=== PATIENT | female | born 1955 | race Caucasian/White ===

== ENCOUNTER 2020-12-07 15:36 | Outpatient (RCR) | payer BC | END 2020-12-10 | disposition home or self-care (01) | DX: M53.3 Sacrococcygeal disorders, not elsewhere classified (principal) ==

== ENCOUNTER 2021-01-18 09:15 | Outpatient (RCR) | payer BC | END 2021-03-18 | disposition home or self-care (01) | DX: M53.3 Sacrococcygeal disorders, not elsewhere classified (principal) ==

== ENCOUNTER 2021-08-21 14:27 | Outpatient (RCR) | payer MEDICARE, OTHER | END 2021-08-23 | disposition home or self-care (01) | PROVIDERS: ATTEND Family Medicine | DX: M53.3 Sacrococcygeal disorders, not elsewhere classified ==

== ENCOUNTER 2021-09-10 13:25 | Outpatient (RCR) | payer MEDICARE, OTHER | END 2021-09-23 | disposition home or self-care (01) | PROVIDERS: ATTEND Family Medicine | DX: M54.2 Cervicalgia (principal); M25.519 Pain in unspecified shoulder; Z91.81 History of falling ==

== ENCOUNTER 2023-03-18 14:15 | Outpatient (RCR) | payer MEDICARE, OTHER | END 2023-03-23 | disposition home or self-care (01) | PROVIDERS: ATTEND Nurse Practitioner Family | DX: M54.2 Cervicalgia (principal); M25.551 Pain in right hip; M62.838 Other muscle spasm; E78.5 Hyperlipidemia, unspecified ==

== ENCOUNTER 2023-04-16 09:06 | Outpatient (RCR) | payer MEDICARE, OTHER | END 2023-04-23 | disposition home or self-care (01) | PROVIDERS: ATTEND Nurse Practitioner Family | DX: M54.2 Cervicalgia (principal); M25.551 Pain in right hip; M62.838 Other muscle spasm; E78.5 Hyperlipidemia, unspecified ==